=== PATIENT | female | born 1950 | race Caucasian/White ===

== ENCOUNTER 2023-02-26 14:58 | Observation (INO) ==
[2023-02-26] MEDS ORDERED: ALBUT/IPRATROP 3MG/0.5MG NEB 3 ML VIAL NEB STA (15:26)
--- NOTE | 2023-02-26 15:51 | XRay Report ---
XR chest 1V portable CLINICAL HISTORY: Sepsis. COMPARISON STUDY: No previous studies for comparison. FINDINGS: No pneumothorax or pleural effusion is present. Cardiac size is normal. Mediastinal contour s are normal. Mild reticulonodular interstitial thickening is present. A 2 cm right upper lung densit y is likely artifactual. IMPRESSION: 1. Mild reticulonodular interstitial thickening, a nonspecific finding. 2. 2 cm right upper lung density which is likely due to summation artifact. Airspace opacity or less likely a pulmonary nodule are within the differential. Nonemergent chest CT is recommended. ACT 112: Negative or not required by law. Electronically signed by: Mario Butts M.D. 02/26/2023 3:49 PM
[2023-02-26 15:53] LABS: Base Excess VBG -0.6 mEq/L; HCO3 VBG 23 mmol/L; Oxygen Saturation VBG 61.7 %; PCO2 VBG 35 mmHg (38-50); PO2 VBG 34 mmHg; pH VBG 7.43 (7.36-7.41)
[2023-02-26 15:59] LABS: Basophils # (auto) 0.04 K/uL (0-0.2); Basophils % (auto) 0.2 %; Eosinophils # (auto) 0.25 K/uL (0-0.50); Eosinophils % (auto) 1.3 %; Hematocrit (blood only) 41.9 % (37.0-47.0); Immature Granulocytes # (auto) 0.08 K/uL (0.01-0.20); Immature Granulocytes % (auto) 0.4 %; Lymphocytes # (auto) 2.03 K/uL (1.2-3.4); Lymphocytes % (auto) 10.5 %; Mean Corpuscular Hemoglobin 29.2 pg (25.0-34.0); Mean Corpuscular Hgb Conc 33.4 g/dL (32.0-36.0); Mean Corpuscular Volume 87.5 fL (80.0-100.0); Mean Platelet Volume 10.7 fL (9.4-12.4); Monocytes # (auto) 1.02 K/uL (0.11-0.59); Monocytes % (auto) 5.3 %; Neutrophils # (auto) 15.83 K/uL (1.40-6.50); Neutrophils % (auto) 82.3 %; Platelet Count 305 K/uL (130-400); RDW Coefficient of Variation 14.6 % (11.5-14.5); RDW Standard Deviation 46.8 fL (36.4-46.3); Red Blood Count 4.79 M/uL (4.20-5.40); White Blood Count 19.25 K/ul (4.8-10.8)
[2023-02-26 16:06] LABS: Appearance Urine Turbid (Clear); Bacteria Urine Automated Negative (Negative); Bilirubin Urine Negative (Negative); Blood Urine 3+ (Negative); Color Urine Yellow; Epithelial Cell Urine Auto >30 /lpf (0-5); Glucose Urine UA Negative (Negative); Ketones Urine 1+ (Negative); Leukocyte Esterase Urine 2+ (Negative); Nitrite Urine Negative (Negative); Protein Urine 1+ (Negative); RBC Urine Automated >30 /hpf (0-4); Specific Gravity Urine 1.021 (1.000-1.030); Urobilinogen Urine Negative (Negative); WBC Urine Automated >30 /hpf (0-5); pH Urine 5.5 (4.5-7.5)
[2023-02-26 16:17] LABS: BUN Creatinine Ratio 33.8 (10-20); Bilirubin Direct 0.1 mg/dl (0-0.2); Bilirubin,Total 0.4 mg/dl (0.2-1.0); Calcium 9.2 mg/dl (8.6-10.3); Creatinine Clr Calc Pharmacy 64.7 ml/min; Est GFR (African American) 99.9 ml/min; Est GFR (Non-African American) 86.2 ml/min; Magnesium 1.7 mg/dl (1.7-2.4); Potassium 3.8 mmol/L (3.5-5.1); Total Protein 7.7 gm/dl (6.0-8.3)
[2023-02-26 16:21] LABS: Troponin I High Sensitivity 8.9 pg/ml (0-14)
[2023-02-26 16:22] LABS: Cast Urine Automated 0 /lpf (0-5)
[2023-02-26 16:32] LABS: Prothrombin Time 10.9 Seconds (9.0-12.0)
[2023-02-26 16:42] LABS: Influenza A virus by PCR Negative (Neg); Influenza B virus by PCR Negative (Neg); RSV by PCR Negative (Neg); SARS CoV2 RNA(COVID-19) Ceph NEGATIVE (Negative)
[2023-02-26] MEDS ORDERED: levoFLOXacin/D5W 500 MG/100 ML BAG IV STA (16:51)
--- NOTE | 2023-02-26 17:47 | History & Physical Report ---
Date of Service February 26, 2023 Assessment & Plan (1) Pneumonia: Plan: Suspected mostly viral metapneumovirus causing ongoing deconditioning and loss of appetite. Of note patient was not tested but her was positive and ill at the same time therefore presumed positive. However this does not explain increased WBC and CXR with possible RUQ consolidation warranting antibiotics to cover for secondary bacterial infection. Started doxycycline without improvement which would be covering atypical infections but not finished course. Will continue levaquin for short 5 day course. Incentive spirometer Flutter valve CURB 65 - 2 warranting admission along with her also eing sicker therefore no one to robbi after her at home currently. (2) Abnormal CXR: Plan: CT chest recommended and ordered which can also look for consolidation to determine need for ongoing antibiotics (3) Chronic migraine: Plan: Continue nadolol (4) Urinary urgency: Plan: Continue mirabegron Plan VTE Prophylaxis - Lovenox 40mg SQ daily Diet - regular Disposition - observation status to med/surg Admission and Anticipated Discharge Date Admission Date: February 26, 2023 History of Present Illness Chief Complaint: Shortness of breath Primary Care Provider: Edna Earl MD Kylie Mcadams is a 72 year old female who presents to the ER with shortness of breath and cough. She reports 6 days of symptoms. 2 days ago she was started on doxycycline and an albuterol inhaler after ER visit at [facility] but has not seen any improvement with these. Coughing up green sputum. Generalized weakness. Loss of taste and smell. Decreased appetite. She denies any chest pain, orthopnea, palpitations, abdominal pain, nausea, vomiting, diarrhea or urinary symptoms. In the ER she did notice some improvement with her coughing up sputum with the nebulizer but she denies any history of COPD or asthma. Allergies Allergy/AdvReac Type Severity Reaction Status Date / Time clindamycin Allergy airway Verified 07/31/22 14:52 swelling nitrofurantoin Allergy Verified 07/31/22 14:52 Penicillins Allergy Hives Verified 07/31/22 14:52 Sulfa (Sulfonamide Allergy Hives Verified 07/31/22 14:52 Antibiotics) Home Medications Medication Instructions Recorded Confirmed Type estradiol 0.01% (0.1 mg/gram) 1 g vaginal .COMPLEX #42.5 grams 07/31/22 02/26/23 Rx vaginal cream mirabegron 50 mg tablet,extended 50 mg PO DAILY #90 tabs 09/17/22 02/26/23 Rx release 24 hr (Myrbetriq) amitriptyline 10 mg tablet 10 mg PO HS 02/26/23 02/26/23 History doxycycline hyclate 100 mg tablet 100 mg PO BID 02/26/23 02/26/23 History nadolol 20 mg tablet 20 mg PO DAILY 02/26/23 02/26/23 History Past Med/Surg History Medical History Atrophic vaginitis Benign cyst of left breast Midline cystocele Other hemorrhoids Refractory migraine without aura UTI (urinary tract infection) Surgical History H/O cataract removal with insertion of prosthetic lens H/O dilation and curettage H/O total hysterectomy with BSO, age 21, she is not sure of reason. non cancer Family History Father Lung cancer Parkinson disease Mother CHF (congestive heart failure) Parkinson disease Denies family history of Ovarian cancer Breast cancer Colorectal cancer Social History Smoking Status: Never smoker Second Hand Exposure: No; Do You Dip or Chew Tobacco: No; Tobacco Cessation Education Requested by Patient: No Hx Alcohol Use: No Hx Substance Use: No Preferred Language: [place] Communication Ability: Effective [employer] Tungsten Arc Required: No Beliefs That Will Affect Care: None marital status: Current Living Situation: Spouse current occupational status: retired Other Information That Helps Us Care for You: No Feels Safe at Home: Yes Safety Concerns: Feels Safe At This Time Assistive Devices: Denture - Upper and Glasses Assistive Devices Comment: Upper partial. Review of Systems Review of Systems: All systems reviewed & are unremarkable except as noted in HPI & below Physical Exam Constitutional: WD/WN, vitals as above Eyes: PERRL, conjunctivae normal, anicteric sclerae ENMT: external ear and nose normal, oropharynx normal Respiratory: normal respiratory effort; no respiratory distress Auscultation: + crackles (bibasal); breath sounds present, no diminished lung sounds, no rales, no rhonchi and no wheezes Cardiovascular: RRR, no murmur, no edema Gastrointestinal (Abdomen): normal bowel sounds, soft, nontender, no hepatosplenomegaly Musculoskeletal: no cyanosis or clubbing, extremities motor strength 5/5 Skin: no rashes, warm and dry Neurologic: moves all extremities and awake; not confused Psychiatric: A+Ox3, euthymic affect Results & Data Results & Data Vital Signs (Past 12 Hours) Vital Signs Temp Pulse Resp BP Pulse Ox O2 Del Method 02/26/23 16:13 87 02/26/23 15:56 18 97 Room Air 02/26/23 15:54 Room Air 02/26/23 15:54 95 Room Air 02/26/23 15:54 18 95 Room Air 02/26/23 15:54 89 18 153/76 H 95 Room Air 02/26/23 15:07 37.1 C 87 18 185/92 H 96 Room Air Laboratory Results Abnormal lab results 02/26/23 02/26/23 02/26/23 Range/Units 15:31 15:31 15:31 WBC 19.25 H (4.8-10.8) K/ul RDW Std Deviation 46.8 H (36.4-46.3) fL RDW Coeff of Miriam 14.6 H (11.5-14.5) % Neut # (Auto) 15.83 H (1.40-6.50) K/uL [place] # (Auto) 1.02 H (0.11-0.59) K/uL VBG pH (7.36-7.41) VBG pCO2 (38-50) mmHg Anion Gap 12 H (3-11) BUN/Creatinine Ratio 33.8 H (10-20) Glucose 105 H (70-99(Fasting)) mg/dl Urine Appearance Turbid A (Clear) Urine Protein 1+ H (Negative) Urine Ketones 1+ H (Negative) Urine Blood 3+ H (Negative) Ur Leukocyte Esterase 2+ H (Negative) Urine WBC (Auto) >30 H (0-5) /hpf Urine RBC (Auto) >30 H (0-4) /hpf U Epithel Cells (Auto) >30 H (0-5) /lpf 02/26/23 Range/Units 15:40 WBC (4.8-10.8) K/ul RDW Std Deviation (36.4-46.3) fL RDW Coeff of Miriam (11.5-14.5) % Neut # (Auto) (1.40-6.50) K/uL [place] # (Auto) (0.11-0.59) K/uL VBG pH 7.43 H (7.36-7.41) VBG pCO2 35 L (38-50) mmHg Anion Gap (3-11) BUN/Creatinine Ratio (10-20) Glucose (70-99(Fasting)) mg/dl Urine Appearance (Clear) Urine Protein (Negative) Urine Ketones (Negative) Urine Blood (Negative) Ur Leukocyte Esterase (Negative) Urine WBC (Auto) (0-5) /hpf Urine RBC (Auto) (0-4) /hpf U Epithel Cells (Auto) (0-5) /lpf Diagnostic Findings XR chest 1V portable CLINICAL HISTORY: Sepsis. COMPARISON STUDY: No previous studies for comparison. FINDINGS: No pneumothorax or pleural effusion is present. Cardiac size is normal. Mediastinal contours are normal. Mild reticulonodular interstitial thickening is present. A 2 cm right upper lung density is likely artifactual. IMPRESSION: 1. Mild reticulonodular interstitial thickening, a nonspecific finding. 2. 2 cm right upper lung density which is likely due to summation artifact. Airspace opacity or less likely a pulmonary nodule are within the differential. Nonemergent chest CT is recommended. Medications Administered ER Medications Given: Levaquin 500mg IV Duoneb 3ml ECG Rate (beats per minute): 90 Rhythm: normal sinus Findings: + nonspecific-ST abn; no acute ischemic change Comparison ECG Date: no prior available Code Status & VTE Plan Code Status Full VTE Prophylaxis Plan VTE Prophylaxis will be ordered: Yes PG Care Time/CCT Total # of Minutes Spent Total Time Spent with Patient: Total time spent is greater than 50% in coordination of care (as documented) at patient's floor/unit and/or counseling patient: Coding Level of Care Code 73971 INT INP/OBS CARE 3/75MIN Diagnoses Pneumonia J18.9 Abnormal CXR R93.89 Chronic migraine Urinary urgency R39.15
[2023-02-26] MEDS ORDERED: ONDANSETRON INJ 2 MG/ML 2 ML VIAL IV PRN (20:14)
[2023-02-26] MEDS ORDERED: LACTATED RINGER'S 1,000 ML IV SCH (21:30)
[2023-02-26] MEDS: AMITRIPTYLINE HCL 10 MG TAB PO SCH (22:03)
[2023-02-26] MEDS: MIRABEGRON ER 25 MG TAB PO SCH (22:03)
[2023-02-26] MEDS: nadoloL 40 MG TAB PO SCH (22:04)
[2023-02-26] MEDS: ENOXAPARIN INJ 40 MG/0.4 ML SYR SQ SCH (22:13)
[2023-02-26] MEDS: ALBUT/IPRATROP 3MG/0.5MG NEB 3 ML VIAL NEB PRN (22:50)
--- NOTE | 2023-02-26 23:38 | Emergency Department Note ---
History of Present Illness General Chief Complaint: Respiratory Problems Stated Complaint: PNEUMONIA, NOT GETTING BETTER Time Seen by Provider: 02/26/23 15:09 History of Present Illness Provider Complaint: shortness of breath and cough Onset (ago): week(s) (1) Severity: moderate Consistency/Duration: + progressively worsening Relieved By: + nothing Exacerbated By: + exertion and + coughing Context: + recent illness (Patient currently on the last day of 5-day course of doxycycline for bronchitis.) Associated symptoms: + fever, + cough, + wheezing and + sputum production; no chest pain, no polyuria, no nausea/vomiting or no abdominal pain Treatment prior to arrival: none HPI Narrative: in adjacent bed in the emergency department with similar chief complain t. Home Medications Medication Instructions Recorded Confirmed Type estradiol 0.01% (0.1 mg/gram) 1 g vaginal .COMPLEX #42.5 grams 07/31/22 02/26/23 Rx vaginal cream mirabegron 50 mg tablet,extended 50 mg PO DAILY #90 tabs 09/17/22 02/26/23 Rx release 24 hr (Myrbetriq) amitriptyline 10 mg tablet 10 mg PO HS 02/26/23 02/26/23 History doxycycline hyclate 100 mg tablet 100 mg PO BID 02/26/23 02/26/23 History nadolol 20 mg tablet 20 mg PO DAILY 02/26/23 02/26/23 History Allergies Allergy/AdvReac Type Severity Reaction Status Date / Time clindamycin Allergy airway Verified 07/31/22 14:52 swelling nitrofurantoin Allergy Verified 07/31/22 14:52 Penicillins Allergy Hives Verified 07/31/22 14:52 Sulfa (Sulfonamide Allergy Hives Verified 07/31/22 14:52 Antibiotics) Past Med/Surg History Medical History Atrophic vaginitis Benign cyst of left breast Midline cystocele Other hemorrhoids Refractory migraine without aura UTI (urinary tract infection) Surgical History H/O cataract removal with insertion of prosthetic lens H/O dilation and curettage H/O total hysterectomy with BSO, age 21, she is not sure of reason. non cancer Family History Father Lung cancer Parkinson disease Mother CHF (congestive heart failure) Parkinson disease Denies family history of Ovarian cancer Breast cancer Colorectal cancer Social History Smoking Status: Never smoker Second Hand Exposure: No; Do You Dip or Chew Tobacco: No; Tobacco Cessation Education Requested by Patient: No Hx Alcohol Use: No Hx Substance Use: No Preferred Language: Belgian Communication Ability: Effective Foreign Language Teacher Required: No Beliefs That Will Affect Care: None marital status: Current Living Situation: Spouse current occupational status: retired Other Information That Helps Us Care for You: No Feels Safe at Home: Yes Safety Concerns: Feels Safe At This Time Assistive Devices: Denture - Upper and Glasses Assistive Devices Comment: Upper partial. Physical Exam Vital Signs: Vital Signs - 24 hr 02/26/23 15:07 02/26/23 15:54 02/26/23 15:54 Temperature 37.1 C Temperature Source Temporal Artery Sc an Pulse Rate 87 89 Respiratory Rate 18 18 18 Respiratory Effort / Characteristics Non-Labored Sponta neous Respiratory Depth Normal Normal Respiratory Patter n Regular Blood Pressure 185/92 H 153/76 H Blood Pressure Selam n 123 101 Pulse Oximetry 96 95 95 Oxygen Delivery Me thod Room Air Room Air Room Air Sepsis Recent Feve r Within 48 Hours No Sepsis New/Unexpla ined Change in Men trista Status No Sepsis Action Take n by Nursing No Action Required 02/26/23 15:54 02/26/23 15:54 02/26/23 15:56 Temperature Temperature Source Pulse Rate Respiratory Rate 18 Respiratory Effort / Characteristics Non-Labored Sponta neous Non-Labored Sponta neous Respiratory Depth Normal Normal Respiratory Patter n Regular Regular Blood Pressure Blood Pressure Selam n Pulse Oximetry 95 97 Oxygen Delivery Me thod Room Air Room Air Room Air Sepsis Recent Feve r Within 48 Hours Sepsis New/Unexpla ined Change in Men trista Status Sepsis Action Take n by Nursing 02/26/23 16:13 Temperature Temperature Source Pulse Rate 87 Respiratory Rate Respiratory Effort / Characteristics Respiratory Depth Respiratory Patter n Blood Pressure Blood Pressure Selam n Pulse Oximetry Oxygen Delivery Me thod Sepsis Recent Feve r Within 48 Hours Sepsis New/Unexpla ined Change in Men trista Status Sepsis Action Take n by Nursing Physical Exam: Physical Exam GENERAL: oriented to person, place, and time. appears well-developed and well- nourished. HENT: Exam performed. - Head: Normocephalic and atraumatic. EYES: Conjunctivae and EOM are normal. Right eye exhibits no discharge. Left eye exhibits no discharge. No scleral icterus. NECK: Normal range of motion. Neck supple. No JVD present. CV: Normal rate, regular rhythm, normal heart sounds and intact distal pulses. There is no peripheral edema. Palpable radial pulses bue. PULM/CHEST: Expiratory wheezes bilaterally. ABD: The abdomen is soft. There is no tenderness. NEURO: Motor and sensation grossly intact. SKIN: Skin is warm and dry. He is not diaphoretic. PSYCH: normal mood and affect. Behavior is normal. Judgment and thought content normal. Course Course 1509: The patient was evaluated in room B11A. A complete history and physical exam was performed Cardiac monitoring: An order was placed for continuous cardiac monitoring. The monitor shows a rate of 90 with sinus rhythm interpreted by me 1715: Vital signs stable. Patient's wheezing is improved status post DuoNeb. Labs show leukocytosis of 19.25. VBG within normal limits. Lactic acid within normal limits. Urinalysis is contaminated sample. Patient negative for COVID RSV and influenza. Formal chest x-ray read shows possible 2 cm right upper lung density on the right which could represent an artifact or airspace opacity or pulmonary nodule. Given the patient's leukocytosis, symptoms, is more thought to be a infiltrate. Patient has a CURB 65 score of 2 will discuss with hospitalist for admission. Discussed with pharmacy given the patient's allergies and failed outpatient doxycycline treatment we will treat with Levaquin. Discussed the case with Dr. Herman will evaluate the patient and the in the adjacent bed with similar symptoms for admission for pneumonia. CURB-65 Score for Pneumonia Severity from [email or web address] on 02/26/2023 All calculations should be rechecked by clinician prior to use RESULT SUMMARY: 2 points Moderate risk group: 6.8% 30-day mortality. Consider inpatient treatment or outpatient with close followup. INPUTS: Confusion > 0 = No BUN >19 mg/dL (>7 mmol/L urea) > 1 = Yes Respiratory Rate &ge;30 > 0 = No Systolic BP <90 mmHg or Diastolic BP &le;60 mmHg > 0 = No Age &ge;65 > 1 = Yes Administered Medications Albuterol (Albut/Ipratrop 3mg/0.5mg Neb 3 Ml Vial) 3 ml NEB Q2H PRN; Protocol PRN Reason: shortness of breath Stop: 03/28/23 21:14 Last Admin: 02/26/23 22:50 Dose: 3 ml Documented By: ALEXI Amitriptyline HCl (Amitriptyline Hcl 10 Mg Tab) 10 mg PO [facility] Stop: 03/28/23 20:59 Last Admin: 02/26/23 22:03 Dose: 10 mg Documented By: MAKAYLA Enoxaparin Sodium (Enoxaparin Inj 40 Mg/0.4 Ml Syr) 40 mg SQ QPM [facility] Stop: 03/28/23 21:29 Last Admin: 02/26/23 22:13 Dose: 40 mg Documented By: MAKAYLA Lactated Ringer's (Lr) 1,000 mls @ 80 mls/hr IV .[id number] [facility] Stop: 02/27/23 09:59 Last Admin: 02/26/23 21:30 Dose: 80 mls/hr Documented By: MAKAYLA Mirabegron (Mirabegron Er 25 Mg Tab) 50 mg PO [facility] Stop: 03/28/23 21:29 Last Admin: 02/26/23 22:03 Dose: 50 mg Documented By: MAKAYLA Nadolol (Nadolol 40 Mg Tab) 20 mg PO [facility] Stop: 03/28/23 21:29 Last Admin: 02/26/23 22:04 Dose: 20 mg Documented By: MAKAYLA Discontinued Medications Albuterol (Albut/Ipratrop 3mg/0.5mg Neb 3 Ml Vial) 3 ml NEB NOW STA; Protocol Stop: 02/26/23 15:27 Last Admin: 02/26/23 16:00 Dose: 3 ml Documented By: LAYTON Levofloxacin/Dextrose (Levaquin/D5w) 500 mg in 100 mls @ 100 mls/hr IV NOW STA Stop: 02/26/23 17:50 Last Infusion: 02/26/23 18:02 Dose: 0 mls/hr Documented By: Admin: 02/26/23 17:06 Dose: 100 mls/hr Documented By: LAYTON Medical Decision Making Laboratory Data Attestation: I reviewed the patient's lab results. 02/26/23 15:31 02/26/23 15:31 Lab Results 02/26/23 02/26/23 02/26/23 Range/Units 15:31 15:31 15:31 WBC 19.25 H (4.8-10.8) K/ul RBC 4.79 (4.20-5.40) M/uL Hgb 14.0 (12.0-16.0) g/dl Hct 41.9 (37.0-47.0) % MCV 87.5 (80.0-100.0) fL MCH 29.2 (25.0-34.0) pg MCHC 33.4 (32.0-36.0) g/dL RDW Std Deviation 46.8 H (36.4-46.3) fL RDW Coeff of Miriam 14.6 H (11.5-14.5) % Plt Count 305 (130-400) K/uL MPV 10.7 (9.4-12.4) fL Immature Gran % (Auto) 0.4 % Neut % (Auto) 82.3 % Lymph % (Auto) 10.5 % [place] % (Auto) 5.3 % Eos % (Auto) 1.3 % Baso % (Auto) 0.2 % Neut # (Auto) 15.83 H (1.40-6.50) K/uL Lymph # (Auto) 2.03 (1.2-3.4) K/uL [place] # (Auto) 1.02 H (0.11-0.59) K/uL Eos # (Auto) 0.25 (0-0.50) K/uL Baso # (Auto) 0.04 (0-0.2) K/uL Immature Gran # (Auto) 0.08 (0.01-0.20) K/uL PT (9.0-12.0) Seconds INR (0.9-1.1) APTT (21.0-31.0) Seconds PTT Ratio VBG pH (7.36-7.41) VBG pCO2 (38-50) mmHg VBG pO2 mmHg VBG HCO3 mmol/L VBG O2 Saturation % VBG Base Excess mEq/L Sodium 139 (136-145) mmol/L Potassium 3.8 (3.5-5.1) mmol/L Chloride 105 (98-107) mmol/L Carbon Dioxide 22 (21-32) mmol/L Anion Gap 12 H (3-11) BUN 23 (6-23) mg/dl Creatinine 0.68 (0.6-1.2) mg/dl Est Cr Clr Drug Dosing 64.7 ml/min Est GFR ( Amer) 99.9 ml/min Est GFR (Non-Af Amer) 86.2 ml/min BUN/Creatinine Ratio 33.8 H (10-20) Glucose 105 H (70-99(Fasting)) mg/dl Lactate 1.1 (0.4-2.0) mmol/L Calcium 9.2 (8.6-10.3) mg/dl Magnesium 1.7 (1.7-2.4) mg/dl Total Bilirubin 0.4 (0.2-1.0) mg/dl Direct Bilirubin 0.1 (0-0.2) mg/dl AST 23 (13-39) U/L ALT 14 (7-52) U/L Alkaline Phosphatase 85 (34-104) U/L Troponin I High Sens 8.9 (0-14) pg/ml Total Protein 7.7 (6.0-8.3) gm/dl Albumin 4.0 (3.4-5.0) gm/dl Procalcitonin (0-0.5) ng/ml Urine Color Urine Appearance (Clear) Urine pH (4.5-7.5) Ur Specific [place] (1.000-1.030) Urine Protein (Negative) Urine Glucose (UA) (Negative) Urine Ketones (Negative) Urine Blood (Negative) Urine Nitrite (Negative) Urine Bilirubin (Negative) Urine Urobilinogen (Negative) Ur Leukocyte Esterase (Negative) Urine WBC (Auto) (0-5) /hpf Urine RBC (Auto) (0-4) /hpf U Hyaline Cast (Auto) (0-5) /lpf U Epithel Cells (Auto) (0-5) /lpf Urine Bacteria (Auto) (Negative) SARS-CoV-2 (PCR) (Negative) Influenza Type A (PCR) (Neg) Influenza Type B (PCR) (Neg) RSV (RT-PCR) (Neg) 02/26/23 02/26/23 02/26/23 Range/Units 15:31 15:31 15:31 WBC (4.8-10.8) K/ul RBC (4.20-5.40) M/uL Hgb (12.0-16.0) g/dl Hct (37.0-47.0) % MCV (80.0-100.0) fL MCH (25.0-34.0) pg MCHC (32.0-36.0) g/dL RDW Std Deviation (36.4-46.3) fL RDW Coeff of Miriam (11.5-14.5) % Plt Count (130-400) K/uL MPV (9.4-12.4) fL Immature Gran % (Auto) % Neut % (Auto) % Lymph % (Auto) % [place] % (Auto) % Eos % (Auto) % Baso % (Auto) % Neut # (Auto) (1.40-6.50) K/uL Lymph # (Auto) (1.2-3.4) K/uL [place] # (Auto) (0.11-0.59) K/uL Eos # (Auto) (0-0.50) K/uL Baso # (Auto) (0-0.2) K/uL Immature Gran # (Auto) (0.01-0.20) K/uL PT 10.9 (9.0-12.0) Seconds INR 1.0 (0.9-1.1) APTT 27.0 (21.0-31.0) Seconds PTT Ratio 1.0 VBG pH (7.36-7.41) VBG pCO2 (38-50) mmHg VBG pO2 mmHg VBG HCO3 mmol/L VBG O2 Saturation % VBG Base Excess mEq/L Sodium (136-145) mmol/L Potassium (3.5-5.1) mmol/L Chloride (98-107) mmol/L Carbon Dioxide (21-32) mmol/L Anion Gap (3-11) BUN (6-23) mg/dl Creatinine (0.6-1.2) mg/dl Est Cr Clr Drug Dosing ml/min Est GFR ( Amer) ml/min Est GFR (Non-Af Amer) ml/min BUN/Creatinine Ratio (10-20) Glucose (70-99(Fasting)) mg/dl Lactate (0.4-2.0) mmol/L Calcium (8.6-10.3) mg/dl Magnesium (1.7-2.4) mg/dl Total Bilirubin (0.2-1.0) mg/dl Direct Bilirubin (0-0.2) mg/dl AST (13-39) U/L ALT (7-52) U/L Alkaline Phosphatase (34-104) U/L Troponin I High Sens (0-14) pg/ml Total Protein (6.0-8.3) gm/dl Albumin (3.4-5.0) gm/dl Procalcitonin < 0.05 (0-0.5) ng/ml Urine Color Yellow Urine Appearance Turbid A (Clear) Urine pH 5.5 (4.5-7.5) Ur Specific [place] 1.021 (1.000-1.030) Urine Protein 1+ H (Negative) Urine Glucose (UA) Negative (Negative) Urine Ketones 1+ H (Negative) Urine Blood 3+ H (Negative) Urine Nitrite Negative (Negative) Urine Bilirubin Negative (Negative) Urine Urobilinogen Negative (Negative) Ur Leukocyte Esterase 2+ H (Negative) Urine WBC (Auto) >30 H (0-5) /hpf Urine RBC (Auto) >30 H (0-4) /hpf U Hyaline Cast (Auto) 0 (0-5) /lpf U Epithel Cells (Auto) >30 H (0-5) /lpf Urine Bacteria (Auto) Negative (Negative) SARS-CoV-2 (PCR) (Negative) Influenza Type A (PCR) (Neg) Influenza Type B (PCR) (Neg) RSV (RT-PCR) (Neg) 02/26/23 02/26/23 Range/Units 15:31 15:40 WBC (4.8-10.8) K/ul RBC (4.20-5.40) M/uL Hgb (12.0-16.0) g/dl Hct (37.0-47.0) % MCV (80.0-100.0) fL MCH (25.0-34.0) pg MCHC (32.0-36.0) g/dL RDW Std Deviation (36.4-46.3) fL RDW Coeff of Miriam (11.5-14.5) % Plt Count (130-400) K/uL MPV (9.4-12.4) fL Immature Gran % (Auto) % Neut % (Auto) % Lymph % (Auto) % [place] % (Auto) % Eos % (Auto) % Baso % (Auto) % Neut # (Auto) (1.40-6.50) K/uL Lymph # (Auto) (1.2-3.4) K/uL [place] # (Auto) (0.11-0.59) K/uL Eos # (Auto) (0-0.50) K/uL Baso # (Auto) (0-0.2) K/uL Immature Gran # (Auto) (0.01-0.20) K/uL PT (9.0-12.0) Seconds INR (0.9-1.1) APTT (21.0-31.0) Seconds PTT Ratio VBG pH 7.43 H (7.36-7.41) VBG pCO2 35 L (38-50) mmHg VBG pO2 34 mmHg VBG HCO3 23 mmol/L VBG O2 Saturation 61.7 % VBG Base Excess -0.6 mEq/L Sodium (136-145) mmol/L Potassium (3.5-5.1) mmol/L Chloride (98-107) mmol/L Carbon Dioxide (21-32) mmol/L Anion Gap (3-11) BUN (6-23) mg/dl Creatinine (0.6-1.2) mg/dl Est Cr Clr Drug Dosing ml/min Est GFR ( Amer) ml/min Est GFR (Non-Af Amer) ml/min BUN/Creatinine Ratio (10-20) Glucose (70-99(Fasting)) mg/dl Lactate (0.4-2.0) mmol/L Calcium (8.6-10.3) mg/dl Magnesium (1.7-2.4) mg/dl Total Bilirubin (0.2-1.0) mg/dl Direct Bilirubin (0-0.2) mg/dl AST (13-39) U/L ALT (7-52) U/L Alkaline Phosphatase (34-104) U/L Troponin I High Sens (0-14) pg/ml Total Protein (6.0-8.3) gm/dl Albumin (3.4-5.0) gm/dl Procalcitonin (0-0.5) ng/ml Urine Color Urine Appearance (Clear) Urine pH (4.5-7.5) Ur Specific [place] (1.000-1.030) Urine Protein (Negative) Urine Glucose (UA) (Negative) Urine Ketones (Negative) Urine Blood (Negative) Urine Nitrite (Negative) Urine Bilirubin (Negative) Urine Urobilinogen (Negative) Ur Leukocyte Esterase (Negative) Urine WBC (Auto) (0-5) /hpf Urine RBC (Auto) (0-4) /hpf U Hyaline Cast (Auto) (0-5) /lpf U Epithel Cells (Auto) (0-5) /lpf Urine Bacteria (Auto) (Negative) SARS-CoV-2 (PCR) NEGATIVE (Negative) Influenza Type A (PCR) Negative (Neg) Influenza Type B (PCR) Negative (Neg) RSV (RT-PCR) Negative (Neg) Imaging Data Radiologist's Impression: Chest X-Ray 02/26/23 15:11 XR chest 1V portable CLINICAL HISTORY: Sepsis. COMPARISON STUDY: No previous studies for comparison. FINDINGS: No pneumothorax or pleural effusion is present. Cardiac size is normal. Mediastinal contours are normal. Mild reticulonodular interstitial thickening is present. A 2 cm right upper lung density is likely artifactual. IMPRESSION: 1. Mild reticulonodular interstitial thickening, a nonspecific finding. 2. 2 cm right upper lung density which is likely due to summation artifact. Airspace opacity or less likely a pulmonary nodule are within the differential. Nonemergent chest CT is recommended. ACT 112: Negative or not required by law. Electronically signed by: Mario Butts M.D. 02/26/2023 3:49 PM ECG Data Attestation: I personally reviewed and interpreted this ECG as follows: Interpretation: Sinus rhythm with a rate of 90. MI 132 QRS [address] elevation or ST depression. [facility] Narrative 1509: The patient was evaluated in room B11A. A complete history and physical exam was performed Cardiac monitoring: An order was placed for continuous cardiac monitoring. The monitor shows a rate of 90 with sinus rhythm interpreted by me 1715: Vital signs stable. Patient's wheezing is improved status post DuoNeb. Labs show leukocytosis of 19.25. VBG within normal limits. Lactic acid within normal limits. Urinalysis is contaminated sample. Patient negative for COVID RSV and influenza. Formal chest x-ray read shows possible 2 cm right upper lung density on the right which could represent an artifact or airspace opacity or pulmonary nodule. Given the patient's leukocytosis, symptoms, is more thought to be a infiltrate. Patient has a CURB 65 score of 2 will discuss with hospitalist for admission. Discussed with pharmacy given the patient's allergies and failed outpatient doxycycline treatment we will treat with Levaquin. Discussed the case with Dr. Herman will evaluate the patient and the in the adjacent bed with similar symptoms for admission for pneumonia. CURB-65 Score for Pneumonia Severity from [email or web address] on 02/26/2023 All calculations should be rechecked by clinician prior to use RESULT SUMMARY: 2 points Moderate risk group: 6.8% 30-day mortality. Consider inpatient treatment or outpatient with close followup. INPUTS: Confusion > 0 = No BUN >19 mg/dL (>7 mmol/L urea) > 1 = Yes Respiratory Rate &ge;30 > 0 = No Systolic BP <90 mmHg or Diastolic BP &le;60 mmHg > 0 = No Age &ge;65 > 1 = Yes Impression & Plan Pneumonia Discharge Plan Visit Data Chief Complaint: Respiratory Problems Stated Complaint: PNEUMONIA, NOT GETTING BETTER ED Provider: Adan Jeffries Discharge Problem: Pneumonia Patient Disposition: Admitted As Inpatient Discharge Instructions Interventions: ED Discharge Assessment Last Done: 02/26/23 20:01
[2023-02-27] MEDS: ALBUT/IPRATROP 3MG/0.5MG NEB 3 ML VIAL NEB PRN (06:26)
[2023-02-27 07:03] LABS: Basophils # (auto) 0.03 K/uL (0-0.2); Basophils % (auto) 0.2 %; Eosinophils # (auto) 0.22 K/uL (0-0.50); Eosinophils % (auto) 1.6 %; Hematocrit (blood only) 37.6 % (37.0-47.0); Hemoglobin 12.8 g/dl (12.0-16.0); Immature Granulocytes # (auto) 0.06 K/uL (0.01-0.20); Immature Granulocytes % (auto) 0.4 %; Lymphocytes # (auto) 1.92 K/uL (1.2-3.4); Lymphocytes % (auto) 13.8 %; Mean Corpuscular Hemoglobin 29.4 pg (25.0-34.0); Mean Corpuscular Volume 86.2 fL (80.0-100.0); Mean Platelet Volume 11.2 fL (9.4-12.4); Monocytes # (auto) 0.86 K/uL (0.11-0.59); Monocytes % (auto) 6.2 %; Neutrophils # (auto) 10.85 K/uL (1.40-6.50); Neutrophils % (auto) 77.8 %; Platelet Count 256 K/uL (130-400); RDW Coefficient of Variation 14.6 % (11.5-14.5); RDW Standard Deviation 46.3 fL (36.4-46.3); Red Blood Count 4.36 M/uL (4.20-5.40); White Blood Count 13.94 K/ul (4.8-10.8)
[2023-02-27 07:17] LABS: BUN Creatinine Ratio 32.1 (10-20); Calcium 8.3 mg/dl (8.6-10.3); Creatinine Clr Calc Pharmacy 81.4 ml/min; Est GFR (African American) 107.6 ml/min; Est GFR (Non-African American) 92.9 ml/min; Potassium 3.7 mmol/L (3.5-5.1)
--- NOTE | 2023-02-27 07:43 | Electrocardiogram Report ---
Test Reason : Blood Pressure : / mmHG Vent. Rate : 090 BPM Atrial Rate : 090 BPM P-R Int : 132 ms QRS Dur : 068 ms QT Int : 368 ms P-R-T Axes : 043 025 005 degrees QTc Int : 450 ms Normal sinus rhythm Diffuse Nonspecific ST and T wave abnormality Abnormal ECG No previous ECGs available Confirmed by Fuentes Shabazz ([id number]) on 02/27/2023 7:42:42 AM Referred By: REFERRED SELF Confirmed By:Fuentes Shabazz
[2023-02-27] MEDS ORDERED: MAGNESIUM SULFATE / D5W 1 GM/100 ML BAG IV ONE (08:23)
--- NOTE | 2023-02-27 08:23 | Hospitalist Progress Note ---
Date of Service February 27, 2023 Assessment & Plan (1) Pneumonia: Plan: Suspected mostly viral metapneumovirus causing ongoing deconditioning and loss of appetite. Of note patient was not tested but her was positive and ill at the same time therefore presumed positive. However this does not explain increased WBC and CXR with possible RUQ consolidation warranting antibiotics to cover for secondary bacterial infection. Started doxycycline without improvement which would be covering atypical infections but not finished course. Will continue levaquin for short 5 day course. Incentive spirometer Flutter valve CURB 65 - 2 warranting admission along with her also eing sicker therefore no one to robbi after her at home currently. 02/27 --> CT chest 1. Scattered tree-in-bud nodular opacities with a few additional irregular/patchy airspace opacities and partial opacification of the bronchi most pronounced within the left lower lobe and right lung apex. These findings favor an infectious bronchiolitis/atypical pneumonia such as Mycobacterium avium intracellular. [address] follow-up recommended to ensure resolution of the irregular nodular densities within the right upper lobe and left lower lobe. 2. The 2 cm irregular density within the right lung apex seen on the prior chest x-ray likely corresponds to the small nodular densities and partially opacified bronchi at this location. 3. A few prominent mediastinal and hilar lymph nodes which are likely reactive. Attention at follow-up recommended. patient will need repeat CT chest in 6 months as above On Levaquin, WBC improved. Procal negative. Will continue levaquin for today, but suspect viral related. No hx COPD/asthma, but did endorse seasonal allergies No fever +sputum production -- sample if able to provide Lightheadedness/dizziness, asked RN to obtain orthostatics -- POSITIVE, 250cc bolus, then 1L NSS @ 80cc/hr for dehydration on exam Continue nebs as needed, added hypertonic saline. Continue mucinex BID Pulm consulted- appreciate recs (2) Abnormal CXR: Plan: Ct chest as above, pulm consulted (3) Chronic migraine: Plan: Continue nadolol (4) Urinary urgency: Plan: Continue mirabegron Plan VTE Prophylaxis - Lovenox 40mg SQ daily while inpatient Admission and Anticipated Discharge Date Admission Date: February 26, 2023 Supervising Physician Co-Signing Physician Notes The patient was not seen by me. The chart was reviewed. Case discussed with JOSSY Chavis. Agree with assessment and plan Subjective eval this morning, doing alright. had a little lightheadedness after cat scan and visiting her . no associated chest pain. breathing stable, improving w/ breathing treatment. No palpitations/visual symptoms, reporting improved at this time. she did complete 5 day course of doxy, discussed continued levaquin, CT not w/ consolidative provess but does need repeat imaging to ensure resolution. No hx COPD/asthma, does endorse some occasional seasonal allergies which she takes claritin for at times. She does continue w/ sputum production but not very much, discussed would like sputum cx if able to obtain. Discussed having pulm review imaging/consultation. RN to check orthostatics -- she reports decent PO intake however does appear dry on examination. If +, planning to order some IVF. Questions/concerns addressed at this time. Physical Exam Physical Exam: General: WD/WN elderly female walking back to bed in room, NAD HEENT; head normocephalic, atraumatic, mm DRY, trachea midline Resp: fine bibasilar crackles, faint expiratory wheezing, no rales, on room air CV: RRR, no significant m/r/g, no significant edema/calf tenderness GI: +BS, soft, NT MSK/Neuro: no focal deficit, no slurred speech Skin: decreased turgor, perfused Psych: AOx3, cooperative Results & Data Results & Data Vital Signs (Past 12 Hours) Vital Signs Pulse Resp Pulse Ox O2 Del Method 02/27/23 06:26 86 16 95 Room Air 02/26/23 22:51 91 H 16 96 Room Air Laboratory Results 02/27/23 02/27/23 02/26/23 Range/Units 06:21 06:21 15:40 WBC 13.94 H (4.8-10.8) K/ul RBC 4.36 (4.20-5.40) M/uL Hgb 12.8 (12.0-16.0) g/dl Hct 37.6 (37.0-47.0) % MCV 86.2 (80.0-100.0) fL MCH 29.4 (25.0-34.0) pg MCHC 34.0 (32.0-36.0) g/dL RDW Std Deviation 46.3 (36.4-46.3) fL RDW Coeff of Miriam 14.6 H (11.5-14.5) % Plt Count 256 (130-400) K/uL MPV 11.2 (9.4-12.4) fL Immature Gran % (Auto) 0.4 % Neut % (Auto) 77.8 % Lymph % (Auto) 13.8 % [place] % (Auto) 6.2 % Eos % (Auto) 1.6 % Baso % (Auto) 0.2 % Neut # (Auto) 10.85 H (1.40-6.50) K/uL Lymph # (Auto) 1.92 (1.2-3.4) K/uL [place] # (Auto) 0.86 H (0.11-0.59) K/uL Eos # (Auto) 0.22 (0-0.50) K/uL Baso # (Auto) 0.03 (0-0.2) K/uL Immature Gran # (Auto) 0.06 (0.01-0.20) K/uL PT (9.0-12.0) Seconds INR (0.9-1.1) APTT (21.0-31.0) Seconds PTT Ratio VBG pH 7.43 H (7.36-7.41) VBG pCO2 35 L (38-50) mmHg VBG pO2 34 mmHg VBG HCO3 23 mmol/L VBG O2 Saturation 61.7 % VBG Base Excess -0.6 mEq/L Sodium 141 (136-145) mmol/L Potassium 3.7 (3.5-5.1) mmol/L Chloride 109 H (98-107) mmol/L Carbon Dioxide 25 (21-32) mmol/L Anion Gap 7 (3-11) BUN 17 (6-23) mg/dl Creatinine 0.53 L (0.6-1.2) mg/dl Est Cr Clr Drug Dosing 81.4 ml/min Est GFR ( Amer) 107.6 ml/min Est GFR (Non-Af Amer) 92.9 ml/min BUN/Creatinine Ratio 32.1 H (10-20) Glucose 109 H (70-99(Fasting)) mg/dl Lactate (0.4-2.0) mmol/L Calcium 8.3 L (8.6-10.3) mg/dl Magnesium (1.7-2.4) mg/dl Total Bilirubin (0.2-1.0) mg/dl Direct Bilirubin (0-0.2) mg/dl AST (13-39) U/L ALT (7-52) U/L Alkaline Phosphatase (34-104) U/L Troponin I High Sens (0-14) pg/ml Total Protein (6.0-8.3) gm/dl Albumin (3.4-5.0) gm/dl Procalcitonin (0-0.5) ng/ml Urine Color Urine Appearance (Clear) Urine pH (4.5-7.5) Ur Specific [place] (1.000-1.030) Urine Protein (Negative) Urine Glucose (UA) (Negative) Urine Ketones (Negative) Urine Blood (Negative) Urine Nitrite (Negative) Urine Bilirubin (Negative) Urine Urobilinogen (Negative) Ur Leukocyte Esterase (Negative) Urine WBC (Auto) (0-5) /hpf Urine RBC (Auto) (0-4) /hpf U Hyaline Cast (Auto) (0-5) /lpf U Epithel Cells (Auto) (0-5) /lpf Urine Bacteria (Auto) (Negative) SARS-CoV-2 (PCR) (Negative) Influenza Type A (PCR) (Neg) Influenza Type B (PCR) (Neg) RSV (RT-PCR) (Neg) 02/26/23 02/26/23 02/26/23 Range/Units 15:31 15:31 15:31 WBC (4.8-10.8) K/ul RBC (4.20-5.40) M/uL Hgb (12.0-16.0) g/dl Hct (37.0-47.0) % MCV (80.0-100.0) fL MCH (25.0-34.0) pg MCHC (32.0-36.0) g/dL RDW Std Deviation (36.4-46.3) fL RDW Coeff of Miriam (11.5-14.5) % Plt Count (130-400) K/uL MPV (9.4-12.4) fL Immature Gran % (Auto) % Neut % (Auto) % Lymph % (Auto) % [place] % (Auto) % Eos % (Auto) % Baso % (Auto) % Neut # (Auto) (1.40-6.50) K/uL Lymph # (Auto) (1.2-3.4) K/uL [place] # (Auto) (0.11-0.59) K/uL Eos # (Auto) (0-0.50) K/uL Baso # (Auto) (0-0.2) K/uL Immature Gran # (Auto) (0.01-0.20) K/uL PT 10.9 (9.0-12.0) Seconds INR 1.0 (0.9-1.1) APTT 27.0 (21.0-31.0) Seconds PTT Ratio 1.0 VBG pH (7.36-7.41) VBG pCO2 (38-50) mmHg VBG pO2 mmHg VBG HCO3 mmol/L VBG O2 Saturation % VBG Base Excess mEq/L Sodium (136-145) mmol/L Potassium (3.5-5.1) mmol/L Chloride (98-107) mmol/L Carbon Dioxide (21-32) mmol/L Anion Gap (3-11) BUN (6-23) mg/dl Creatinine (0.6-1.2) mg/dl Est Cr Clr Drug Dosing ml/min Est GFR ( Amer) ml/min Est GFR (Non-Af Amer) ml/min BUN/Creatinine Ratio (10-20) Glucose (70-99(Fasting)) mg/dl Lactate (0.4-2.0) mmol/L Calcium (8.6-10.3) mg/dl Magnesium (1.7-2.4) mg/dl Total Bilirubin (0.2-1.0) mg/dl Direct Bilirubin (0-0.2) mg/dl AST (13-39) U/L ALT (7-52) U/L Alkaline Phosphatase (34-104) U/L Troponin I High Sens (0-14) pg/ml Total Protein (6.0-8.3) gm/dl Albumin (3.4-5.0) gm/dl Procalcitonin (0-0.5) ng/ml Urine Color Yellow Urine Appearance Turbid A (Clear) Urine pH 5.5 (4.5-7.5) Ur Specific [place] 1.021 (1.000-1.030) Urine Protein 1+ H (Negative) Urine Glucose (UA) Negative (Negative) Urine Ketones 1+ H (Negative) Urine Blood 3+ H (Negative) Urine Nitrite Negative (Negative) Urine Bilirubin Negative (Negative) Urine Urobilinogen Negative (Negative) Ur Leukocyte Esterase 2+ H (Negative) Urine WBC (Auto) >30 H (0-5) /hpf Urine RBC (Auto) >30 H (0-4) /hpf U Hyaline Cast (Auto) 0 (0-5) /lpf U Epithel Cells (Auto) >30 H (0-5) /lpf Urine Bacteria (Auto) Negative (Negative) SARS-CoV-2 (PCR) NEGATIVE (Negative) Influenza Type A (PCR) Negative (Neg) Influenza Type B (PCR) Negative (Neg) RSV (RT-PCR) Negative (Neg) 02/26/23 02/26/23 02/26/23 Range/Units 15:31 15:31 15:31 WBC (4.8-10.8) K/ul RBC (4.20-5.40) M/uL Hgb (12.0-16.0) g/dl Hct (37.0-47.0) % MCV (80.0-100.0) fL MCH (25.0-34.0) pg MCHC (32.0-36.0) g/dL RDW Std Deviation (36.4-46.3) fL RDW Coeff of Miriam (11.5-14.5) % Plt Count (130-400) K/uL MPV (9.4-12.4) fL Immature Gran % (Auto) % Neut % (Auto) % Lymph % (Auto) % [place] % (Auto) % Eos % (Auto) % Baso % (Auto) % Neut # (Auto) (1.40-6.50) K/uL Lymph # (Auto) (1.2-3.4) K/uL [place] # (Auto) (0.11-0.59) K/uL Eos # (Auto) (0-0.50) K/uL Baso # (Auto) (0-0.2) K/uL Immature Gran # (Auto) (0.01-0.20) K/uL PT (9.0-12.0) Seconds INR (0.9-1.1) APTT (21.0-31.0) Seconds PTT Ratio VBG pH (7.36-7.41) VBG pCO2 (38-50) mmHg VBG pO2 mmHg VBG HCO3 mmol/L VBG O2 Saturation % VBG Base Excess mEq/L Sodium 139 (136-145) mmol/L Potassium 3.8 (3.5-5.1) mmol/L Chloride 105 (98-107) mmol/L Carbon Dioxide 22 (21-32) mmol/L Anion Gap 12 H (3-11) BUN 23 (6-23) mg/dl Creatinine 0.68 (0.6-1.2) mg/dl Est Cr Clr Drug Dosing 64.7 ml/min Est GFR ( Amer) 99.9 ml/min Est GFR (Non-Af Amer) 86.2 ml/min BUN/Creatinine Ratio 33.8 H (10-20) Glucose 105 H (70-99(Fasting)) mg/dl Lactate 1.1 (0.4-2.0) mmol/L Calcium 9.2 (8.6-10.3) mg/dl Magnesium 1.7 (1.7-2.4) mg/dl Total Bilirubin 0.4 (0.2-1.0) mg/dl Direct Bilirubin 0.1 (0-0.2) mg/dl AST 23 (13-39) U/L ALT 14 (7-52) U/L Alkaline Phosphatase 85 (34-104) U/L Troponin I High Sens 8.9 (0-14) pg/ml Total Protein 7.7 (6.0-8.3) gm/dl Albumin 4.0 (3.4-5.0) gm/dl Procalcitonin < 0.05 (0-0.5) ng/ml Urine Color Urine Appearance (Clear) Urine pH (4.5-7.5) Ur Specific [place] (1.000-1.030) Urine Protein (Negative) Urine Glucose (UA) (Negative) Urine Ketones (Negative) Urine Blood (Negative) Urine Nitrite (Negative) Urine Bilirubin (Negative) Urine Urobilinogen (Negative) Ur Leukocyte Esterase (Negative) Urine WBC (Auto) (0-5) /hpf Urine RBC (Auto) (0-4) /hpf U Hyaline Cast (Auto) (0-5) /lpf U Epithel Cells (Auto) (0-5) /lpf Urine Bacteria (Auto) (Negative) SARS-CoV-2 (PCR) (Negative) Influenza Type A (PCR) (Neg) Influenza Type B (PCR) (Neg) RSV (RT-PCR) (Neg) 02/26/23 Range/Units 15:31 WBC 19.25 H (4.8-10.8) K/ul RBC 4.79 (4.20-5.40) M/uL Hgb 14.0 (12.0-16.0) g/dl Hct 41.9 (37.0-47.0) % MCV 87.5 (80.0-100.0) fL MCH 29.2 (25.0-34.0) pg MCHC 33.4 (32.0-36.0) g/dL RDW Std Deviation 46.8 H (36.4-46.3) fL RDW Coeff of Miriam 14.6 H (11.5-14.5) % Plt Count 305 (130-400) K/uL MPV 10.7 (9.4-12.4) fL Immature Gran % (Auto) 0.4 % Neut % (Auto) 82.3 % Lymph % (Auto) 10.5 % [place] % (Auto) 5.3 % Eos % (Auto) 1.3 % Baso % (Auto) 0.2 % Neut # (Auto) 15.83 H (1.40-6.50) K/uL Lymph # (Auto) 2.03 (1.2-3.4) K/uL [place] # (Auto) 1.02 H (0.11-0.59) K/uL Eos # (Auto) 0.25 (0-0.50) K/uL Baso # (Auto) 0.04 (0-0.2) K/uL Immature Gran # (Auto) 0.08 (0.01-0.20) K/uL PT (9.0-12.0) Seconds INR (0.9-1.1) APTT (21.0-31.0) Seconds PTT Ratio VBG pH (7.36-7.41) VBG pCO2 (38-50) mmHg VBG pO2 mmHg VBG HCO3 mmol/L VBG O2 Saturation % VBG Base Excess mEq/L Sodium (136-145) mmol/L Potassium (3.5-5.1) mmol/L Chloride (98-107) mmol/L Carbon Dioxide (21-32) mmol/L Anion Gap (3-11) BUN (6-23) mg/dl Creatinine (0.6-1.2) mg/dl Est Cr Clr Drug Dosing ml/min Est GFR ( Amer) ml/min Est GFR (Non-Af Amer) ml/min BUN/Creatinine Ratio (10-20) Glucose (70-99(Fasting)) mg/dl Lactate (0.4-2.0) mmol/L Calcium (8.6-10.3) mg/dl Magnesium (1.7-2.4) mg/dl Total Bilirubin (0.2-1.0) mg/dl Direct Bilirubin (0-0.2) mg/dl AST (13-39) U/L ALT (7-52) U/L Alkaline Phosphatase (34-104) U/L Troponin I High Sens (0-14) pg/ml Total Protein (6.0-8.3) gm/dl Albumin (3.4-5.0) gm/dl Procalcitonin (0-0.5) ng/ml Urine Color Urine Appearance (Clear) Urine pH (4.5-7.5) Ur Specific [place] (1.000-1.030) Urine Protein (Negative) Urine Glucose (UA) (Negative) Urine Ketones (Negative) Urine Blood (Negative) Urine Nitrite (Negative) Urine Bilirubin (Negative) Urine Urobilinogen (Negative) Ur Leukocyte Esterase (Negative) Urine WBC (Auto) (0-5) /hpf Urine RBC (Auto) (0-4) /hpf U Hyaline Cast (Auto) (0-5) /lpf U Epithel Cells (Auto) (0-5) /lpf Urine Bacteria (Auto) (Negative) SARS-CoV-2 (PCR) (Negative) Influenza Type A (PCR) (Neg) Influenza Type B (PCR) (Neg) RSV (RT-PCR) (Neg) Diagnostic Findings Chest X-Ray 02/26/23 15:11 XR chest 1V portable CLINICAL HISTORY: Sepsis. COMPARISON STUDY: No previous studies for comparison. FINDINGS: No pneumothorax or pleural effusion is present. Cardiac size is normal. Mediastinal contours are normal. Mild reticulonodular interstitial thickening is present. A 2 cm right upper lung density is likely artifactual. IMPRESSION: 1. Mild reticulonodular interstitial thickening, a nonspecific finding. 2. 2 cm right upper lung density which is likely due to summation artifact. Airspace opacity or less likely a pulmonary nodule are within the differential. Nonemergent chest CT is recommended. ACT 112: Negative or not required by law. Electronically signed by: Mario Butts M.D. 02/26/2023 3:[address] 02/26/23 21:[address] WITH CONTRAST CT DOSE: 199.19 mGy.cm HISTORY: Abnormal chest x-ray. Follow-up 2 cm right upper lung density TECHNIQUE: Multiaxial CT images of the chest were performed following the intravenous administration of contrast. A dose lowering technique was utilized adhering to the principles of ALARA. COMPARISON: Chest x-ray 02/26/2023. FINDINGS: The thyroid gland enhances normally. A 1 cm calcification within the right breast. Normal esophagus. Limited views of the upper abdomen demonstrate a normal liver, spleen, and adrenal glands. 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 The heart is normal in size. No pleural or pericardial effusions. A few prominent mediastinal and hilar lymph nodes. These may be reactive. Normal caliber thoracic aorta with no evidence for a dissection. The central pulmonary arteries are patent. No pneumothorax. Mild biapical pleural- parenchymal scarlike densities are noted. Mild scattered bronchiectasis with areas of mild bronchial wall thickening. There are few scattered partially opacified bronchi most pronounced within the left lower lobe and right middle lobe. There is calcified granuloma within the left lower lobe. Scattered tree-in-bud nodular airspace opacities most pronounced within the right upper lobe and left lower lobe with a few additional irregular focal airspace opacities at these locations. Dominant right apical irregular density on image 62 measures 8 mm. Dominant patchy density within the base of the left lower lobe on image 214 measures 13 mm. These findings favor an infectious bronchiolitis/atypical pneumonia such as Mycobacterium avium intracellular. IMPRESSION: 1. Scattered tree-in-bud nodular opacities with a few additional irregular/patchy airspace opacities and partial opacification of the bronchi most pronounced within the left lower lobe and right lung apex. These findings favor an infectious bronchiolitis/atypical pneumonia such as Mycobacterium avium intracellular. [address] follow-up recommended to ensure resolution of the irregular nodular densities within the right upper lobe and left lower lobe. 2. The 2 cm irregular density within the right lung apex seen on the prior chest x-ray likely corresponds to the small nodular densities and partially opacified bronchi at this location. 3. A few prominent mediastinal and hilar lymph nodes which are likely reactive. Attention at follow-up recommended. ACT 112: Positive. There are findings on this exam that require communication between the performing entity and the patient following Patient Test Result Information Act ([place] Act 112) guidelines. Electronically signed by: Malachi Workman M.D. 02/27/2023 11:18 AM PG Care Time/CCT Total # of Minutes Spent Total Time Spent with Patient: Total time spent is greater than 50% in coordination of care (as documented) at patient's floor/unit and/or counseling patient: Coding Level of Care Code 46005 SUB INP/OBS CARE 3/50MIN Diagnoses Pneumonia J18.9 Laterality: right Lung location: unspecified part of lung Pneumonia type: due to unspecified organism Abnormal CXR R93.89 Chronic migraine Urinary urgency R39.15 (1) Pneumonia Laterality: right Lung location: unspecified part of lung Pneumonia type: due to unspecified organism Qualified Code(s): J18.9 - Pneumonia, unspecified organism
[2023-02-27 08:42] LABS: Magnesium 1.7 mg/dl (1.7-2.4)
[2023-02-27] MEDS ORDERED: nadoloL 40 MG TAB PO SCH (09:00)
[2023-02-27] MEDS ORDERED: MIRABEGRON ER 25 MG TAB PO SCH (09:00)
[2023-02-27] MEDS: guaiFENesin 600 MG TABCR PO SCH ×2 (10:05→20:55)
[2023-02-27] MEDS: ACETAMINOPHEN 325 MG TAB PO PRN ×2 (10:14→21:00)
[2023-02-27] MEDS ORDERED: OPTIRAY 350 100ml IV ONE (11:00)
[2023-02-27] MEDS ORDERED: levoFLOXacin 750 MG TAB PO SCH (11:00)
--- NOTE | 2023-02-27 11:20 | CT Scan Report ---
CHEST CT WITH CONTRAST CT DOSE: 199.19 mGy.cm HISTORY: Abnormal chest x-ray. Follow-up 2 cm right upper lung density TECHNIQUE: Multiaxial CT images of the chest were performed following the intravenous administration of contrast. A dose lowering technique was utilized adhering to the principles of ALARA. COMPARISON: Chest x-ray 02/26/2023. FINDINGS: The thyroid gland enhances normally. A 1 cm calcification within the right breast. Normal e sophagus. Limited views of the upper abdomen demonstrate a normal liver, spleen, and adrenal glands. 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 The heart is normal in size. No pleural or pericardial eff usions. A few prominent mediastinal and hilar lymph nodes. These may be reactive. Normal caliber thor acic aorta with no evidence for a dissection. The central pulmonary arteries are patent. No pneumotho rax. Mild biapical pleural-parenchymal scarlike densities are noted. Mild scattered bronchiectasis wi th areas of mild bronchial wall thickening. There are few scattered partially opacified bronchi most pronounced within the left lower lobe and right middle lobe. There is calcified granuloma within the left lower lobe. Scattered tree-in-bud nodular airspace opacities most pronounced within the right up per lobe and left lower lobe with a few additional irregular focal airspace opacities at these locati ons. Dominant right apical irregular density on image 62 measures 8 mm. Dominant patchy density withi n the base of the left lower lobe on image 214 measures 13 mm. These findings favor an infectious bro nchiolitis/atypical pneumonia such as Mycobacterium avium intracellular. IMPRESSION: 1. Scattered tree-in-bud nodular opacities with a few additional irregular/patchy airspace opacities and partial opacification of the bronchi most pronounced within the left lower lobe and right lung ap ex. These findings favor an infectious bronchiolitis/atypical pneumonia such as Mycobacterium avium i ntracellular. [address] follow-up recommended to ensure resolution of the irregular nodular de nsities within the right upper lobe and left lower lobe. 2. The 2 cm irregular density within the right lung apex seen on the prior chest x-ray likely corresp onds to the small nodular densities and partially opacified bronchi at this location. 3. A few prominent mediastinal and hilar lymph nodes which are likely reactive. Attention at follow-u p recommended. ACT 112: Positive. There are findings on this exam that require communication between the performing entity and the patient following Patient Test Result Information Act ([place] Act 112) guidelines. Electronically signed by: Malachi Workman M.D. 02/27/2023 11:18 AM
[2023-02-27] MEDS ORDERED: SODIUM CHLORIDE 0.9% 1000ML 250 ML IV ONE (12:33)
[2023-02-27] MEDS ORDERED: SODIUM CHLORIDE 0.9% 1000ML 1,000 ML IV SCH (12:45)
--- NOTE | 2023-02-27 13:12 | Pulmonary Consultation ---
Date of Consultation February 27, 2023 Assessment & Plan (1) Bronchiectasis: (2) Abnormal CXR: (3) Cough: Plan Impression: 73-year-old female with chronic cough admitted with what appears to be an exacerbation of bronchiectasis. She is better currently. We do not have any culture data available and she is not been worked up in the past. Recommendations: 1. We will request sputum for AFB. Routine sputum cultures have also been ordered but not yet been resulted. 2. Given the potential concern for nontuberculous mycobacterial infection, would avoid macrolides as well as fluoroquinolones in an effort to reduce resistance in the future. At this point time I think the patient has completed appropriate courses of antibiotics. She has been afebrile. Procalcitonin is undetectable and there is no evidence of pneumonia on her CT scan so I think antibiotics can be safely discontinued. If antibiotics were to be restarted, cephalosporins, penicillins, or tetracyclines would be considered. 3. Abnormal CT scan: Patient does have evidence of bronchiectasis. Outpatient work-up recommended including PFTs and follow-up CT scan in approximately 2 to 3 months. 4. Recommend assessing the patient for need for supplemental oxygen with formal two-step. 3. At this point time I think the patient is stable to dismiss from the hospital from a pulmonary standpoint. Ultimate disposition is deferred to the patient's primary service. I would be happy to see her back in the pulmonary clinic in 2 to 3 months with PFTs and a follow-up CT scan. Thanks for the opportunity of assisting in the care of this patient. Feel free to contact us if we can be of additional assistance. Pulmonary will sign off at this point time. History of Present Illness Attending Physician: Pablo Lainez MD History of Present Illness Asked by hospitalist to evaluate this patient with bronchiectasis and bronchitic complaints. History obtained from discussion with the patient as well as review the electronic medical record. Patient is a 73-year-old lifelong non-smoker who does have a history of a chronic cough with bronchitic complaints. She has been diagnosed with pneumonia on 2 separate occasions in the past. She presented to the emergency room yesterday with complaints of shortness of breath and cough. She had 6 days of symptoms and was started with doxycycline as well as albuterol in the outpatient setting. She did not notice significant improvement with the symptoms. She not had fevers chills or night sweats. Her had been diagnosed with metapneumovirus and is admitted to the hospital. Patient was never hypoxemic. Patient states that she typically produces small amounts of clear phlegm. She has not noted any wheezing. She does not have a history of frequent infections requiring antimicrobial therapy. She states that typically her cough produces clear phlegm. She does not have any shortness of breath with exertion. The patient states that yesterday while walking in the [place] she did become dizzy and lightheaded. But otherwise she has no respiratory complaints. She feels back to her baseline. Allergies Allergy/AdvReac Type Severity Reaction Status Date / Time clindamycin Allergy airway Verified 07/31/22 14:52 swelling nitrofurantoin Allergy Verified 07/31/22 14:52 Penicillins Allergy Hives Verified 07/31/22 14:52 Sulfa (Sulfonamide Allergy Hives Verified 07/31/22 14:52 Antibiotics) Home Medications Medication Instructions Recorded Confirmed Type estradiol 0.01% (0.1 mg/gram) 1 g vaginal .COMPLEX #42.5 grams 07/31/22 02/26/23 Rx vaginal cream mirabegron 50 mg tablet,extended 50 mg PO DAILY #90 tabs 09/17/22 02/26/23 Rx release 24 hr (Myrbetriq) amitriptyline 10 mg tablet 10 mg PO HS 02/26/23 02/26/23 History doxycycline hyclate 100 mg tablet 100 mg PO BID 02/26/23 02/26/23 History nadolol 20 mg tablet 20 mg PO DAILY 02/26/23 02/26/23 History Patient History Medical History Atrophic vaginitis Benign cyst of left breast Midline cystocele Other hemorrhoids Refractory migraine without aura UTI (urinary tract infection) Surgical History H/O cataract removal with insertion of prosthetic lens H/O dilation and curettage H/O total hysterectomy with BSO, age 21, she is not sure of reason. 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 Review of Systems Review of Systems: All systems reviewed & are unremarkable except as noted in Subjective Physical Exam Constitutional: WD/WN, vitals as above Neck: trachea midline, no thyromegaly Respiratory: no respiratory distress, no labored breathing, no cough and not tachypneic Auscultation: + rhonchi Cardiovascular: RRR, no murmur, no edema Gastrointestinal (Abdomen): normal bowel sounds, soft, nontender, no hepatosplenomegaly Musculoskeletal: Extremities: extremities normal to inspection Skin: no rashes, warm and dry Neurologic: Nonfocal exam Lymphatic: no cervical lymphadenopathy Results & Data Results & Data Vital Signs (Past 12 Hours) Vital Signs Temp Pulse Resp BP Pulse Ox O2 Del Method 02/27/23 12:35 95 02/27/23 11:57 76 105/61 02/27/23 11:57 85 139/74 02/27/23 11:56 82 147/80 H 02/27/23 11:44 36.7 C 77 20 117/62 95 Room Air 02/27/23 09:13 36.7 C 89 18 142/78 H 93 Room Air 02/27/23 06:26 86 16 95 Room Air Critical Care Results & Data Vital Signs (Past 12 Hours) Vital Signs Temp Pulse Resp BP Pulse Ox O2 Del Method 02/27/23 10:05 Room Air 02/27/23 12:35 95 02/27/23 11:57 76 105/61 02/27/23 11:57 85 139/74 02/27/23 11:56 82 147/80 H 02/27/23 11:44 36.7 C 77 20 117/62 95 Room Air 02/27/23 09:13 36.7 C 89 18 142/78 H 93 Room Air 02/27/23 06:26 86 16 95 Room Air Lab & Micro Results (Past 24 Hours) RBC 4.36 M/uL (4.20-5.40) 02/27/23 WBC 13.94 K/ul (4.8-10.8) H 02/27/23 Hgb 12.8 g/dl (12.0-16.0) 02/27/23 Hct 37.6 % (37.0-47.0) 02/27/23 MCV 86.2 fL (80.0-100.0) 02/27/23 MCH 29.4 pg (25.0-34.0) 02/27/23 MCHC 34.0 g/dL (32.0-36.0) 02/27/23 RDW Standard Deviation 46.3 fL (36.4-46.3) 02/27/23 RDW Coefficient of Variation 14.6 % (11.5-14.5) H 02/27/23 Plt Count 256 K/uL (130-400) 02/27/23 MPV 11.2 fL (9.4-12.4) 02/27/23 Neutrophils (%) (Auto) 77.8 % 02/27/23 Lymphocytes (%) (Auto) 13.8 % 02/27/23 Monocytes # (Auto) 0.86 K/uL (0.11-0.59) H 02/27/23 Eosinophils # (Auto) 0.22 K/uL (0-0.50) 02/27/23 Immature Granulocyte % (Auto) 0.4 % 02/27/23 Neutrophils # (Auto) 10.85 K/uL (1.40-6.50) H 02/27/23 Lymphocytes # (Auto) 1.92 K/uL (1.2-3.4) 02/27/23 Monocytes # (Auto) 0.86 K/uL (0.11-0.59) H 02/27/23 Eosinophils # (Auto) 0.22 K/uL (0-0.50) 02/27/23 Basophils # (Auto) 0.03 K/uL (0-0.2) 02/27/23 Immature Granulocyte # (Auto) 0.06 K/uL (0.01-0.20) 3 Na 141 mmol/L (136-145) 02/27/23 K 3.7 mmol/L (3.5-5.1) 02/27/23 Cl 109 mmol/L (98-107) H 02/27/23 CO2 25 mmol/L (21-32) 02/27/23 Anion Gap 7 (3-11) 02/27/23 BUN 17 mg/dl (6-23) 02/27/23 Creatinine 0.53 mg/dl (0.6-1.2) L 02/27/23 Estimated GFR ( Amer) 107.6 ml/min 02/27/23 Estimated GFR (Non-Af Amer) 92.9 ml/min 02/27/23 BUN/Creatinine Ratio 32.1 (10-20) H 02/27/23 Glu 109 mg/dl (70-99(Fasting)) H 02/27/23 Ca 8.3 mg/dl (8.6-10.3) L 02/27/23 Total Bilirubin 0.4 mg/dl (0.2-1.0) 02/26/23 Direct Bilirubin 0.1 mg/dl (0-0.2) 02/26/23 AST 23 U/L (13-39) 02/26/23 ALT 14 U/L (7-52) 02/26/23 Alkaline Phosphatase 85 U/L (34-104) 02/26/23 TP 7.7 gm/dl (6.0-8.3) 02/26/23 Albumin 4.0 gm/dl (3.4-5.0) 02/26/23 Mg 1.7 mg/dl (1.7-2.4) 02/27/23 06:21 Calcium Level 8.3 mg/dl (8.6-10.3) L 02/27/23 06:21 Prothromb Time International Ratio 1.0 (0.9-1.1) 02/26/23 15:3 1 Venous Blood pH 7.43 (7.36-7.41) H 02/26/23 15:40 Venous Blood Partial Pressure CO2 35 mmHg (38-50) L 02/26/23 15 :40 Venous Blood Partial Pressure O2 34 mmHg 02/26/23 15:40 Venous Blood HCO3 23 mmol/L 02/26/23 15:40 Venous Blood Base Excess -0.6 mEq/L 02/26/23 15:40 Venous Blood Oxygen Saturation 61.7 % 02/26/23 15:40 Microbiology 02/26/23 15:31 Urine Culture - Preliminary Urine,Clean Catch Pin-point growth present, reincubating. Diagnostic Findings (Past 24 Hours) Chest X-Ray 02/26/23 15:11 XR chest 1V portable CLINICAL HISTORY: Sepsis. COMPARISON STUDY: No previous studies for comparison. FINDINGS: No pneumothorax or pleural effusion is present. Cardiac size is normal. Mediastinal contours are normal. Mild reticulonodular interstitial thickening is present. A 2 cm right upper lung density is likely artifactual. IMPRESSION: 1. Mild reticulonodular interstitial thickening, a nonspecific finding. 2. 2 cm right upper lung density which is likely due to summation artifact. Airspace opacity or less likely a pulmonary nodule are within the differential. Nonemergent chest CT is recommended. ACT 112: Negative or not required by law. Electronically signed by: Mario Butts M.D. 02/26/2023 3:[address] 02/26/23 21:[address] WITH CONTRAST CT DOSE: 199.19 mGy.cm HISTORY: Abnormal chest x-ray. Follow-up 2 cm right upper lung density TECHNIQUE: Multiaxial CT images of the chest were performed following the intravenous administration of contrast. A dose lowering technique was utilized adhering to the principles of ALARA. COMPARISON: Chest x-ray 02/26/2023. FINDINGS: The thyroid gland enhances normally. A 1 cm calcification within the right breast. Normal esophagus. Limited views of the upper abdomen demonstrate a normal liver, spleen, and adrenal glands. 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 The heart is normal in size. No pleural or pericardial effusions. A few prominent mediastinal and hilar lymph nodes. These may be reactive. Normal caliber thoracic aorta with no evidence for a dissection. The central pulmonary arteries are patent. No pneumothorax. Mild biapical pleural- parenchymal scarlike densities are noted. Mild scattered bronchiectasis with areas of mild bronchial wall thickening. There are few scattered partially opacified bronchi most pronounced within the left lower lobe and right middle lobe. There is calcified granuloma within the left lower lobe. Scattered tree-in-bud nodular airspace opacities most pronounced within the right upper lobe and left lower lobe with a few additional irregular focal airspace opacities at these locations. Dominant right apical irregular density on image 62 measures 8 mm. Dominant patchy density within the base of the left lower lobe on image 214 measures 13 mm. These findings favor an infectious bronchiolitis/atypical pneumonia such as Mycobacterium avium intracellular. IMPRESSION: 1. Scattered tree-in-bud nodular opacities with a few additional irregular/patchy airspace opacities and partial opacification of the bronchi most pronounced within the left lower lobe and right lung apex. These findings favor an infectious bronchiolitis/atypical pneumonia such as Mycobacterium avium intracellular. [address] follow-up recommended to ensure resolution of the irregular nodular densities within the right upper lobe and left lower lobe. 2. The 2 cm irregular density within the right lung apex seen on the prior chest x-ray likely corresponds to the small nodular densities and partially opacified bronchi at this location. 3. A few prominent mediastinal and hilar lymph nodes which are likely reactive. Attention at follow-up recommended. ACT 112: Positive. There are findings on this exam that require communication between the performing entity and the patient following Patient Test Result Information Act ([place] Act 112) guidelines. Electronically signed by: Malachi Workman M.D. 02/27/2023 11:18 AM I & O Totals 24 Hours 02/26/23 02/27/23 02/28/23 06:59 06:59 06:59 Intake Total 100 / 100 1100 / 1100 Balance 100 / 100 1100 / 1100 Cumulative 02/26/23 14:58 thru 02/27/23 12:55 Intake Total 1200 Balance 1200 RT Ventilator Mngmt (Last Documented) Ventilator Ordered Settings Respiratory Rate 20 02/27/23 11:44 Ventilator - PT Measurements Respiratory Rate 20 PG Care Time/CCT Total # of Minutes Spent Total Time Spent with Patient: Total time spent is greater than 50% in coordination of care (as documented) at patient's floor/unit and/or counseling patient: Coding Level of Care Code 74980 INT INP/OBS CARE 2/55MIN Diagnoses Bronchiectasis J47.9 Abnormal CXR R93.89 Cough R05.9
[2023-02-27] MEDS: SODIUM CHLOR 7% 4 ML NEB NEB SCH (19:35)
[2023-02-27] MEDS: AMITRIPTYLINE HCL 10 MG TAB PO SCH (20:55)
[2023-02-27] MEDS: ENOXAPARIN INJ 40 MG/0.4 ML SYR SQ SCH (20:55)
[2023-02-27] MEDS: MIRABEGRON ER 25 MG TAB PO SCH (20:56)
[2023-02-27] MEDS: nadoloL 40 MG TAB PO SCH (20:56)
[2023-02-28 06:22] LABS: Basophils # (auto) 0.04 K/uL (0-0.2); Basophils % (auto) 0.3 %; Eosinophils % (auto) 0.6 %; Hematocrit (blood only) 36.9 % (37.0-47.0); Hemoglobin 12.5 g/dl (12.0-16.0); Immature Granulocytes # (auto) 0.08 K/uL (0.01-0.20); Immature Granulocytes % (auto) 0.5 %; Lymphocytes # (auto) 1.85 K/uL (1.2-3.4); Lymphocytes % (auto) 11.8 %; Mean Corpuscular Hemoglobin 29.1 pg (25.0-34.0); Mean Corpuscular Hgb Conc 33.9 g/dL (32.0-36.0); Mean Platelet Volume 11.4 fL (9.4-12.4); Monocytes # (auto) 1.04 K/uL (0.11-0.59); Monocytes % (auto) 6.6 %; Neutrophils # (auto) 12.59 K/uL (1.40-6.50); Neutrophils % (auto) 80.2 %; Platelet Count 247 K/uL (130-400); RDW Coefficient of Variation 14.6 % (11.5-14.5); RDW Standard Deviation 45.6 fL (36.4-46.3); Red Blood Count 4.29 M/uL (4.20-5.40)
[2023-02-28 06:34] LABS: Albumin Level 3.1 gm/dl (3.4-5.0); BUN Creatinine Ratio 20.4 (10-20); Bilirubin,Total 0.4 mg/dl (0.2-1.0); Calcium 8.2 mg/dl (8.6-10.3); Est GFR (African American) 110.5 ml/min; Est GFR (Non-African American) 95.3 ml/min; Potassium 3.5 mmol/L (3.5-5.1); Total Protein 6.1 gm/dl (6.0-8.3)
[2023-02-28] MEDS: SODIUM CHLOR 7% 4 ML NEB NEB SCH (07:19)
[2023-02-28] MEDS: guaiFENesin 600 MG TABCR PO SCH (08:14)
[2023-02-28] MEDS: ACETAMINOPHEN 325 MG TAB PO PRN (08:31)
--- NOTE | 2023-02-28 11:07 | Ultrasound Report ---
RENAL ULTRASOUND CLINICAL HISTORY: Hematuria. COMPARISON STUDY: CT of the abdomen and pelvis August 28, 2021. TECHNIQUE: Sonography of the kidneys and the urinary bladder was performed. FINDINGS: The right kidney measures 10.4 cm in maximal dimension and the left measures 10.1 cm. There is no hydronephrosis. No renal calculus is identified by sonography. The right ureteral jet was visu alized. The left ureteral jet was not visualized. Bladder is otherwise unremarkable by sonography. IMPRESSION: Unremarkable sonographic appearance of the kidneys. No hydronephrosis. ACT 112: Negative or not required by law. Electronically signed by: Mario Butts M.D. 02/28/2023 11:05 AM
--- NOTE | 2023-02-28 12:12 | Discharge Summary ---
Date of Service February 28, 2023 Admission HPI Per Admitting Provider Kylie Mcadams is a 72 year old female who presents to the ER with shortness of breath and cough. She reports 6 days of symptoms. 2 days ago she was started on doxycycline and an albuterol inhaler after ER visit at [facility] but has not seen any improvement with these. Coughing up green sputum. Generalized weakness. Loss of taste and smell. Decreased appetite. She denies any chest pain, orthopnea, palpitations, abdominal pain, nausea, vomiting, diarrhea or urinary symptoms. In the ER she did notice some improvement with her coughing up sputum with the nebulizer but she denies any history of COPD or asthma. Admission Exam Per Admitting Provider Constitutional: WD/WN, vitals as above Eyes: PERRL, conjunctivae normal, anicteric sclerae ENMT: external ear and nose normal, oropharynx normal Respiratory: normal respiratory effort; no respiratory distress Auscultation: + crackles (bibasal); breath sounds present, no diminished lung sounds, no rales, no rhonchi and no wheezes Cardiovascular: RRR, no murmur, no edema Gastrointestinal (Abdomen): normal bowel sounds, soft, nontender, no hepatosplenomegaly Musculoskeletal: no cyanosis or clubbing, extremities motor strength 5/5 Skin: no rashes, warm and dry Neurologic: moves all extremities and awake; not confused Psychiatric: A+Ox3, euthymic affect Principal Diagnosis Viral Pneumonia Discharge Exam General: WD/WN elderly female walking back to bed in room, NAD HEENT; head normocephalic, atraumatic, mm improved but still slightly dry, trachea midline Resp: fine bibasilar crackles, faint expiratory wheezing, no rales, on room air CV: RRR, no significant m/r/g, no significant edema/calf tenderness GI: +BS, soft, NT MSK/Neuro: no focal deficit, no slurred speech Skin: decreased turgor, perfused Psych: AOx3, cooperative Discharge Data Allergies Allergy/AdvReac Type Severity Reaction Status Date / Time clindamycin Allergy airway Verified 07/31/22 14:52 swelling nitrofurantoin Allergy Verified 07/31/22 14:52 Penicillins Allergy Hives Verified 07/31/22 14:52 Sulfa (Sulfonamide Allergy Hives Verified 07/31/22 14:52 Antibiotics) Consultations 04/06/23 16:53 ED Decision to Admit Stat 02/27/23 11:42 Consult Pulmonology Routine Ordered Studies Chest X-Ray 02/26/23 15:11 XR chest 1V portable CLINICAL HISTORY: Sepsis. COMPARISON STUDY: No previous studies for comparison. FINDINGS: No pneumothorax or pleural effusion is present. Cardiac size is normal. Mediastinal contours are normal. Mild reticulonodular interstitial thickening is present. A 2 cm right upper lung density is likely artifactual. IMPRESSION: 1. Mild reticulonodular interstitial thickening, a nonspecific finding. 2. 2 cm right upper lung density which is likely due to summation artifact. Airspace opacity or less likely a pulmonary nodule are within the differential. Nonemergent chest CT is recommended. ACT 112: Negative or not required by law. Electronically signed by: Mario Butts M.D. 02/26/2023 3:[address] 02/26/23 21:[address] WITH CONTRAST CT DOSE: 199.19 mGy.cm HISTORY: Abnormal chest x-ray. Follow-up 2 cm right upper lung density TECHNIQUE: Multiaxial CT images of the chest were performed following the intravenous administration of contrast. A dose lowering technique was utilized adhering to the principles of ALARA. COMPARISON: Chest x-ray 02/26/2023. FINDINGS: The thyroid gland enhances normally. A 1 cm calcification within the right breast. Normal esophagus. Limited views of the upper abdomen demonstrate a normal liver, spleen, and adrenal glands. 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 The heart is normal in size. No pleural or pericardial effusions. A few prominent mediastinal and hilar lymph nodes. These may be reactive. Normal caliber thoracic aorta with no evidence for a dissection. The central pulmonary arteries are patent. No pneumothorax. Mild biapical pleural- parenchymal scarlike densities are noted. Mild scattered bronchiectasis with areas of mild bronchial wall thickening. There are few scattered partially opacified bronchi most pronounced within the left lower lobe and right middle lobe. There is calcified granuloma within the left lower lobe. Scattered tree-in-bud nodular airspace opacities most pronounced within the right upper lobe and left lower lobe with a few additional irregular focal airspace opacities at these locations. Dominant right apical irregular density on image 62 measures 8 mm. Dominant patchy density within the base of the left lower lobe on image 214 measures 13 mm. These findings favor an infectious bronchiolitis/atypical pneumonia such as Mycobacterium avium intracellular. IMPRESSION: 1. Scattered tree-in-bud nodular opacities with a few additional irregular/patchy airspace opacities and partial opacification of the bronchi most pronounced within the left lower lobe and right lung apex. These findings favor an infectious bronchiolitis/atypical pneumonia such as Mycobacterium avium intracellular. [address] follow-up recommended to ensure resolution of the irregular nodular densities within the right upper lobe and left lower lobe. 2. The 2 cm irregular density within the right lung apex seen on the prior chest x-ray likely corresponds to the small nodular densities and partially opacified bronchi at this location. 3. A few prominent mediastinal and hilar lymph nodes which are likely reactive. Attention at follow-up recommended. ACT 112: Positive. There are findings on this exam that require communication between the performing entity and the patient following Patient Test Result Information Act ([place] Act 112) guidelines. Electronically signed by: Malachi Workman M.D. 02/27/2023 11:18 AM Renal Ultrasound 02/28/23 09:13 RENAL ULTRASOUND CLINICAL HISTORY: Hematuria. COMPARISON STUDY: CT of the abdomen and pelvis August 28, 2021. TECHNIQUE: Sonography of the kidneys and the urinary bladder was performed. FINDINGS: The right kidney measures 10.4 cm in maximal dimension and the left measures 10.1 cm. There is no hydronephrosis. No renal calculus is identified by sonography. The right ureteral jet was visualized. The left ureteral jet was not visualized. Bladder is otherwise unremarkable by sonography. IMPRESSION: Unremarkable sonographic appearance of the kidneys. No hydronephrosis. ACT 112: Negative or not required by law. Electronically signed by: Mario Butts M.D. 02/28/2023 11:05 AM Hospital Course (1) Pneumonia: Suspected mostly viral metapneumovirus causing ongoing deconditioning and loss of appetite (daughter reports poor fluid intake at home on chronic basis to note) Of note, patient was not tested but her was positive and ill at the same time therefore presumed positive. Completed course Doxy x 5 days outpatient w/o much improvement, started on Levaquin on admission CT chest for further eval consolidative process, impression: 1. Scattered tree-in-bud nodular opacities with a few additional irregular/patchy airspace opacities and partial opacification of the bronchi most pronounced within the left lower lobe and right lung apex. These findings favor an infectious bronchiolitis/atypical pneumonia such as Mycobacterium avium intracellular. [address] follow-up recommended to ensure resolution of the irregular nodular densities within the right upper lobe and left lower lobe. 2. The 2 cm irregular density within the right lung apex seen on the prior chest x-ray likely corresponds to the small nodular densities and partially opacified bronchi at this location. 3. A few prominent mediastinal and hilar lymph nodes which are likely reactive. Attention at follow-up recommended. patient will need repeat CT chest in 2 months per pulm WBC improved, procal obtained and was NEGATIVE. Urine cx negative no hx COPD/asthma, endorsed seasonal allergies/chronic cough, occasional OTC claritin/similar Pulm consulted -- d/c abx given negative procal. Added AFB to sputum cx for further eval (patient was able to produce sample prior to discharge -- per pulm, can f/u outpatient) 2step, no need for o2. sent rx for albuterol HFA prn, continue incentive spirometer/flutter valve/respiratory exercises, OTC mucinex, hydration Updated daughter on plan prior to dc (someone will be staying with patient until her dc, in to visit for holiday weekend and lots of family lives clustered together) Outpt f/u pulm for PFT testing and repeat CT chest in 2 months (2) Abnormal CXR: Ct chest as above, pulm consulted -- repeat CT chest in 2 months w/ pulm as well as outpt PFT testing (3) Chronic migraine: Continued nadolol (4) Urinary urgency: Continued mirabegron Does have issues w/ "hematuria" -- renal US w/o mass, follows w/ urology and per their note, possible suspect from vagina rather than bladder. patient unable to delineate this could be from vaginal bleeding as she does report atrophic vaginitis --> discussed f/u HAY STACKER OPERATOR at d/c for possible steroid/topical cream -- she notes she has f/u appt in 2 weeks Plan VTE Prophylaxis - Lovenox 40mg SQ daily while inpatient Discharged home w/ family support and outpatient follow up. Total Time Total Time Spent Total Time Spent (In Minutes): 40 Discharge Plan Discharge Items Patient Disposition: Home - Self-Care Reason For Visit: PNEUMONIA Discharge Diagnosis: Viral Pneumonia Goals: You have been hospitalized for an acute medical problem. During your stay at [facility], we have made an effort to correct the problem that brought you to the hospital while keeping you as comfortable as possible. Medications were used to bring your condition under control and your discharge instructions will include directions for any medications you should take after leaving the hospital. Please make sure you see your Primary Care Provider as part of your follow up plan. Activity: Resume your previous activity Non-emergency contact: Primary Care Provider and [employer] Call non-emergency contact if: you have any medication questions, your symptoms worsen and you have a fever Follow-up/Referrals: Natan Lara MD [Physician] - (2-3 months ) Edna Earl MD [Primary Care Provider] - Diet: Heart Healthy Addtl Attending Provider Instructions: You have been hospitalized for shortness of breath and likely have similar viral infection as your . I consulted pulmonology given CT chest for review and they do not feel any further antibiotics are needed and these have been discontinued. This is supportive care/self limited however there is evidence for what is called bronchiectasis and we recommend you have outpatient pulmonary function testing (as well as repeat CT scan of your chest in 2-3 months to ensure resolution of symptoms) and we are arranging you follow up with Dr Lara to have these things done. We have requested sputum cultures as well -- this is pending at discharge and you can have outpatient follow up. You can continue Mucinex over the counter twice daily and continue your albuterol inhaler as needed. Please continue incentive spirometer and flutter valve to help strength lung/prevent pneumonia and help to clear secretions. You should continue to stay well hydrated at home, push oral fluids. Recommendation for gatorade/powerade if not wanting to eat as much to ensure not becoming dehydrated. If you have any worsening shortness of breath, fevers, increased sputum production/change in color or for any other symptoms concerning for you please return to the nearest emergency department. We did a 2step test to see if your oxygen drops at all with ambulation/need for oxygen, and this DID NOT demonstrate any needs. Please follow up with primary care to monitor your progress after discharge. As discussed, you should follow up with HAY STACKER OPERATOR in 2 weeks to see if you are having some occasional bleeding that may benefit from some topical steroid cream. You should follow up with Urology for hematuria issues if persists after HAY STACKER OPERATOR appointment. It has been a pleasure being a part of the medical team providing for you while you have been in the hospital. Take care! Pending Studies at Discharge: Yes Studies:: Sputum/AFB culture Stand-Alone Forms: My [facility], Smoking Cessation Medications and DC Order Prescriptions: New albuterol sulfate 90 mcg/actuation HFA aerosol inhaler 2 inh inhalation Q4H PRN (Reason: shortness of breath or wheezing) Qty: 6.7 0RF Continued Myrbetriq 50 mg tablet extended release 24 hr 50 mg PO DAILY Qty: 90 3RF estradiol 0.01 % (0.1 mg/gram) cream 1 g vaginal .COMPLEX Qty: 42.5 3RF Rx Instructions: 1 g vaginal 2x/wk; nadolol 20 mg tablet 20 mg PO DAILY amitriptyline 10 mg tablet 10 mg PO HS Discontinued doxycycline hyclate 100 mg tablet 100 mg PO BID Rx Instructions: ordered 02/23/23 for 5 days Discharge Orders: Discharge Order (Routine); Ordered 02/28/23 Ordered By: Roxi Cedillo Admission Data Admit Date/Time: 02/26/23 17:45 Attending Provider: Pablo Lainez Admit Provider: Walt Herman Primary Care Provider: Edna Earl Other Providers: Walt Herman ; Natan Lara Other Interventions: Discharge Summary Assessment (RN) Last Done: 02/28/23 13:34 Supervising Physician Co-Signing Physician Notes The patient was seen by me. The chart was reviewed. Case discussed with JOSSY Chavis. Agree with assessment and plan. Home today Coding Level of Care Code 42017 INP/OBS DISCH >30 MIN Diagnoses Pneumonia J18.9 Laterality: right Lung location: unspecified part of lung Pneumonia type: due to unspecified organism Abnormal CXR R93.89 Chronic migraine Urinary urgency R39.15
== END 2023-02-28 14:42 | disposition home or self-care (01) ==
LOC: 3W 14:58 → ED 14:58 → SUATTDRO 17:45 → 3W 20:01